=== PATIENT | female | born 1940 | race Caucasian/White ===

== ENCOUNTER 2020-12-14 17:03 | Outpatient (RCR) | payer MEDICARE, OTHER, SELFPAY ==
[2014-12-09 21:35] VITALS: BMI 30.9
== END 2020-12-14 23:59 ==
LOC: IMMUN 17:03
PROVIDERS: PCP Family Medicine; Visit Provider Family Medicine
DX: Z23 Encounter for immunization (principal)
CPT/HCPCS: 0011A; 0012A